=== PATIENT | male | born 1990 | race African-American/Black ===

== ENCOUNTER 2017-10-21 11:42 | Emergency (ER) | payer MEDICAID ==
[~2017-10-21] VITALS: Ht 180.3 cm; Wt 58.5 kg
[2017-10-21] MEDS ORDERED: NKM (12:01)
--- NOTE | 2017-10-21 12:35 | Emergency Room Report ---
History of Present Illness General Chief Complaint: Eye Problems Source: Patient Present Illness HPI 27 YO Male presents to the ED c/o : Right eye pain, redness, scratching sensation and increased tearing x 3 days. Patient reports photophobia, scratching sensation in the right eye. He denies internal eye pain, significant changes in vision other than increased lacrimation. He denies purulent discharge from the eyes. He also reports that he has had a cough x2 days increased mucus production. Patient denies fevers or chills. He denies eye trauma. Denies contact lens use. Denies history of asthma or COPD. Patient states that he was recently in [place] and believes that his symptoms may have been exacerbated .Denies CP, Palpitations, LOC, AMS, dizziness, Changes in Vision, Sensation, paresthesias, or a sudden severe headache. Allergies: Coded Allergies: No Known Allergies (Unverified , 10/21/17) Patient History Past Medical History: see triage record Past Surgical History: none Pertinent Family History: none Immunizations: UTD Reviewed Nursing Documentation: PMH: Agreed, PSxH: Agreed Nursing Documentation-PMH Past Medical History: No Stated History Review of Systems All Other Systems: negative except mentioned in HPI Physical Exam Vital Signs Date Time Temp Pulse Resp B/P (MAP) Pulse Ox O2 Delivery O2 Flow Rate FiO2 10/21/17 11:56 97.9 77 16 114/74 98 Room Air Sp02 EP Interpretation: reviewed, normal General Appearance: no apparent distress, alert, GCS 15, non-toxic Head: normocephalic, atraumatic Eyes: right eye fluoroscene uptake - in the 7 o clock positino a linear appearance, negative sidel sign. , right eye photophobia, right eye other - increased lacrimation on PE, photophobia, no purulent d/c noted, no crusting or infestation. , bilateral eye normal inspection, bilateral eye PERRL, bilateral eye visual acuity - 20/50 each eye and both. -Per MECHANIC'S ASSISTANT: hearing grossly normal, normal pharynx, no angioedema, normal voice Neck: full range of motion, supple/symm/no masses Respiratory: chest non-tender, lungs clear, normal breath sounds, no wheezing, speaking full sentences Cardiovascular #1: regular rate, rhythm, normal capillary refill Musculoskeletal: back normal, gait/station normal, normal range of motion Neurologic: alert, oriented x3, responsive, motor strength/tone normal, sensory intact, speech normal Skin: normal color, no rash, warm/dry, well hydrated Medical Decision Making PA Attestation Dr. Salinas is my supervising Physician whom patient management has been discussed with. Diagnostic Impression: Primary Impression: Cornea abrasion Qualified Codes: S05.01XA - Injury of conjunctiva and corneal abrasion without foreign body, right eye, initial encounter Additional Impression: Cough ER Course 27 YO Male presents to the ED c/o : Right eye pain, redness, scratching sensation and increased tearing x 3 days. Patient reports photophobia, scratching sensation in the right eye. He denies internal eye pain, significant changes in vision other than increased lacrimation. He denies purulent discharge from the eyes. He also reports that he has had a cough x2 days increased mucus production. Patient denies fevers or chills. He denies eye trauma. Denies history of asthma or COPD. Patient states that he was recently in [facility] and believes that his symptoms may have been exacerbated . Denies CP, Palpitations, LOC, AMS, dizziness, Changes in Vision, Sensation, paresthesias, or a sudden severe headache. - Pt Denies Contact lens use. Ddx considered but are not limited to: corneal abrasion, acute glaucoma, globe rupture, FB, Corneal Ulcer, conjunctivitis. Iridis Vital signs: are WNL, pt. is afebrile H&PE are most consistent with: corneal abrasion ORDERS: -Tetracaine and Fluorescein Stain of the Right eye: -Increase fluorescein uptake in the 7 o clock position, in a linear fashion.There is no involvement of the iris or pupil. Negative Moe sign. Pt. had positive relief of pain with tetracaine drops. there was negative evidence of Fb, deep ulcer, or rupture. ED INTERVENTIONS: none at this time. DISCHARGE: At this time pt. is stable for d/c to home. Will provide printed patient care instructions, and any necessary prescriptions. Care plan and follow up instructions have been discussed with the patient prior to discharge. . Last Vital Signs Date Time Temp Pulse Resp B/P (MAP) Pulse Ox O2 Delivery O2 Flow Rate FiO2 10/21/17 11:56 97.9 77 16 114/74 98 Room Air Disposition: HOME, SELF-CARE Condition: Stable Scripts Guaifenesin (Guaifenesin) 1,200 Mg Tab.er.12h 1200 MG PO Q12HR for 10 Days, #20 TAB Prov: Tere Fox 10/21/17 Codeine/Promethazine Hcl* (PROMETHAZINE-CODEINE SYRUP*) 118 Ml Syrup 5 ML ORAL Q6H Y for For Cough, #120 ML 0 Refills Prov: Tere Fox 10/21/17 Acetaminophen* (TYLENOL EXTRA STRENGTH*) 500 Mg Tablet 500 MG ORAL Q6H, #20 TAB 0 Refills Prov: Tere Fox 10/21/17 Ofloxacin (OCUFLOX) 5 Ml Drops 2 DROP OP TID for 5 Days, #5 ML Prov: Tere Fox 10/21/17 Patient Instructions: Corneal Abrasion Additional Instructions: Take medications as directed. Follow up with an [facility]ING ST[facility]PER in 3 days, even if your symptoms have resolved. --Please review list of primary care clinics, if you do not already have a primary care provider Return sooner to ED if new symptoms occur, or current symptoms become worse. - Please note that this Emergency Department Report was dictated using [employer] toddler teacher technology software, occasionally this can lead to erroneous entry secondary to interpretation by the dictation equipment. Tere Fox Oct 21, 2017 12:34
[2017-10-21] MEDS ORDERED: Tetracaine 0.5% Opth 4ml Soln RIGHT EYE ONE (12:45)
[2017-10-21] MEDS ORDERED: Fluorescein Strips RIGHT EYE ONE (12:45)
[2017-10-21] MEDS ORDERED: OCUFLOX5 ML OP (12:46)
[2017-10-21] MEDS ORDERED: TYLENOL EXTRA500 MG ORAL (12:46)
[2017-10-21 12:53] VITALS: BP 124/72
[2017-10-21] MEDS ORDERED: GUAIFENESIN1200 MG PO (12:56)
[2017-10-21] MEDS ORDERED: PROMETHAZINE-C118 M1 ORAL (12:56)
[2017-10-21 13:00] VITALS: BP 124/72
== END 2017-10-21 13:09 | disposition home or self-care (01) ==
LOC: EMR 12:15
DX: S05.01XA Injury of conjunctiva and corneal abrasion without foreign body, right eye, initial encounter (principal); X58.XXXA Exposure to other specified factors, initial encounter; Y92.89 Other specified places as the place of occurrence of the external cause; R05 Cough
CPT/HCPCS: 99284

== ENCOUNTER 2019-04-08 19:29 | Emergency (ER) | payer MEDICAID, OTHER ==
[~2019-04-08] VITALS: Ht 175.3 cm; Wt 61.2 kg
[~2019-04-08 19:29] MED LIST: GUAIFENESIN1200 MG PO; NKM; OCUFLOX5 ML OP; PROMETHAZINE-C118 M1 ORAL; TYLENOL EXTRA500 MG ORAL
[2019-04-08 19:40] VITALS: BP 121/65
[2019-04-08] MEDS ORDERED: NKM (19:40)
--- NOTE | 2019-04-08 19:45 | NUR ---
ED Nurse Note: Pt arrived ambulatory into ED for complaint of flu like symptoms for approximately 1 month. Pt complains of coughing and fever. Last medication taken was tylenol PM last night at approximately 2000.
--- NOTE | 2019-04-08 19:52 | Emergency Room Report ---
History of Present Illness General Chief Complaint: Flu Like Symptoms Source: Patient Present Illness HPI 28-year-old female p/w cough for 5 days. Pt states cough is productive, with clear non bloody sputum. + Subjective fever chills. no sob or chest pain. + Sore throat. Denies runny nose or myalgias. No sick contacts or recent travel. Patient does not smoke. Patient has been taking Tylenol PM Allergies: Coded Allergies: No Known Allergies (Unverified , 10/21/17) Patient History Past Medical History: see triage record Past Surgical History: none Pertinent Family History: none Reviewed Nursing Documentation: PMH: Agreed; PSxH: Agreed Nursing Documentation-PMH Past Medical History: No Stated History Review of Systems All Other Systems: negative except mentioned in HPI Physical Exam Vital Signs Date Time Temp Pulse Resp B/P (MAP) Pulse Ox O2 Delivery O2 Flow Rate FiO2 04/08/19 19:37 99.9 100 18 95 Room Air Sp02 EP Interpretation: reviewed, normal General Appearance: alert, GCS 15, moderate distress Head: normocephalic, atraumatic Eyes: bilateral eye normal inspection, bilateral eye PERRL, bilateral eye EOMI ENT: normal ENT inspection, normal pharynx, normal voice, moist mucus membranes Neck: normal inspection, full range of motion, supple Respiratory: no retraction, no accessory muscle use, speaking full sentences, wheezing, expiration Cardiovascular #1: normal inspection, regular rate, rhythm, no edema, normal capillary refill Cardiovascular #2: 2+ radial (R), 2+ radial (L) Gastrointestinal: normal inspection, non tender, soft, non-distended, no guarding Genitourinary: no CVA tenderness Musculoskeletal: normal inspection, back normal, normal range of motion, non- tender Neurologic: normal inspection, alert, oriented x3, responsive, motor strength/ tone normal, sensory intact, normal gait, speech normal Psychiatric: normal inspection, judgement/insight normal, memory normal Skin: normal inspection, normal color, no rash, warm/dry, well hydrated, normal turgor Medical Decision Making Diagnostic Impression: Primary Impression: Pneumonia ER Course 28-year-old male p/w cough for 5 days. DDX: Viral URI /bronchitis vs. pneumonia Plan: CXR ER course: Patient remains nontoxic, not in resp distress. CXR obtained - possible slight R sided infilrate Disposition: Patient is to be discharged home with a prescription of Tessalon Perles, albuterol, Z den Strict precautions discussed with patient on when to return to the emergency room including hemoptysis, high fevers, chills, SOB, chest pain which may indicate severe illness. Patient is to follow up with their primary care doctor within 5 days. Patient agrees with plan. Please note that this Emergency Department Report was dictated using [employer] operations center analyst technology software, occasionally this can lead to erroneous entry secondary to interpretation by the dictation equipment Chest X-ray CXR: Ordered: Yes 1 view Indication: Cough EP interpretation: Yes Interpretation: R infiltrate Impression: R pna Electronically signed by Malorie Shah MD Last Vital Signs Date Time Temp Pulse Resp B/P (MAP) Pulse Ox O2 Delivery O2 Flow Rate FiO2 04/08/19 19:37 99.9 100 18 95 Room Air Disposition: HOME, SELF-CARE Condition: Stable Scripts Azithromycin (ZITHROMAX TRI-DEN) 500 Mg Tablet 500 MG ORAL DAILY for 5 Days, #6 PACK Prov: Malorie Shah M.D. 04/08/19 Benzonatate* (TESSALON PERLE*) 100 Mg Capsule 100 MG ORAL THREE TIMES A DAY, #20 PERLE Prov: Malorie Shah M.D. 04/08/19 Albuterol Sulfate* (PROAIR HFA*) 8.5 Gm Hfa.aer.ad 1 PUFF INH Q6H, #8.5 GM 0 Refills Prov: Malorie Shah M.D. 04/08/19 Malorie Shah M.D. April 08, 2019 19:52
[2019-04-08] MEDS ORDERED: PROAIR HFA8.5 GM INH (20:05)
[2019-04-08] MEDS ORDERED: TESSALON PERLE100 MG ORAL (20:05)
[2019-04-08] MEDS ORDERED: ZITHROMAX TRI-500 MG ORAL (20:15)
[2019-04-08] MEDS ORDERED: ZITHROMAX250 MG ORAL (20:17)
[2019-04-08 20:23] VITALS: BP 122/68
--- NOTE | 2019-04-08 20:24 | NUR ---
ED Nurse Note: Pt cleared by . Pt A/Ox4, ambulatory with steady gait. Showing no signs of acute distress. Discharge paperwork and prescriptions provided. Pt verbalized understanding of all instructions. VSS. ID band removed.
--- NOTE | 2019-04-09 13:54 | Diagnostic Imaging Report ---
Indication: Cough Comparison: None A single view chest radiograph was obtained. Findings: Cardiomediastinal appearance is within normal limits for age. The lungs are clear. Pulmonary vascularity is appropriate. The diaphragmatic contour is smooth and costophrenic angles are sharp. No pleural effusions are identified. The bones are unremarkable. Impression: No acute findings
== END 2019-04-08 20:22 | disposition home or self-care (01) ==
LOC: EMR 19:59
DX: J18.9 Pneumonia, unspecified organism (principal)
CPT/HCPCS: 71045; 99283